=== PATIENT | male | born 1965 | race Caucasian/White ===

== ENCOUNTER 2022-12-14 20:34 | Emergency (ER) | payer SELFPAY ==
[2022-12-14 20:41] VITALS: BP 149/82; PULSE 70; RESP 18; TEMP 36.1; O2SAT 98; BMI 26.9
--- NOTE | 2022-12-14 20:50 | DI.RAD.S_ITS ---
PROCEDURE: XR WRIST RT MIN 3V INDICATIONS: deformity TECHNIQUE: 3 views of the wrist were acquired. COMPARISON: None. FINDINGS: Bones: There is a mildly impacted fracture of the distal radius with mild dorsal angulation. Fracture extends to the distal radioulnar joint which demonstrates mild widening. Soft tissues: No suspicious soft tissue calcifications. IMPRESSION: 1. Mildly impacted and dorsally angulated fracture of the distal radius with extension to the distal radioulnar joint. Dictated by: Jersey Pinto M.D. on 12/14/2022 at 22:03 Approved by: Jersey Pinto M.D. on 12/14/2022 at 22:04
[2022-12-14] MEDS: LIDOCAINE 1% 20 ML (22:14)
--- NOTE | 2022-12-14 22:38 | DI.RAD.S_ITS ---
PROCEDURE: XR WRIST RT 2V INDICATIONS: post reduction TECHNIQUE: 2 views of the wrist were acquired. COMPARISON: [facility], , XR WRIST RT MIN 3V, 12/14/2022, 20:59. FINDINGS: Bones: There is slightly improved alignment status post closed reduction of the distal radius fracture with slightly decreased dorsal angulation. There is persistent mild impaction and mild dorsal displacement. Fracture extension to the distal radioulnar joint again noted. Soft tissues: There is an external cast which limits evaluation of fine bony detail. IMPRESSION: 1. Slightly improved alignment status post closed reduction of distal radius fracture. Dictated by: Jersey Pinto M.D. on 12/14/2022 at 23:01 Approved by: Jersey Pinto M.D. on 12/14/2022 at 23:03
--- NOTE | 2022-12-14 22:42 | PC.NURSE ---
Addendum entered by Eliza Rivas R.N. 12/14/22 23:07: Went to give patient pre-pack of norco. During education patient shoved bottle back into my hand and said I don't need that shit. Attempted to educate patient about needing to follow up with orthopedics for definitive care and patient asked if it was necessary because that doctor fixed it. Educated patient that splint placed is a temporary measure and to follow up. Patient acknowledged education. Original Note: Patient continues to need re-education with how to speak and treat staff regarding his care. At one point called Dr Elvis kilpatrick disparaging name after the reduction of his fracture when the patient removed his arm from the provider and repositioned the bone back out of place. Dr Leal tried to educate patient to allow him to hold the bone in place, patient became upset with this and then patient called Dr Elvis mercer. Patient upset that he has not seen his images and states he doesn't trust us regarding his fracture and despite attempting to educate patient on the type and location of break continues to aggressively question this RN about it. Educated patient that x-rays are no longer on films and done digitally and unable to show him in the room. Patient continues to ask to see his x-rays.
--- NOTE | 2022-12-14 22:56 | ED_ITS ---
HPI - Extremity Injury (Upper) General Chief Complaint: Extremity Injury, Upper Stated Complaint: R wrist inj Time Seen by Provider: 12/14/22 21:48 Source: patient Mode of arrival: Ambulatory History of Present Illness HPI narrative: 57-year-old male smoker with noncontributory medical history presents for evaluation of a wrist injury suffered just prior to arrival. He states he was in his normal state of health and denies any prodromal symptoms but stumbled backwards when he lost his footing and landed on an outstretched wrist. He has obvious deformity and pain in his right wrist. He denies any numbness or tingling. He has no pain in his elbow or shoulders. His pain is worse with motion and improves with rest. There are no breaks in the skin. He denies other injuries such as head, neck or back. Related Data Previous Rx's Medication Instructions Recorded hydrocodone 5 mg-acetaminophen 325 1 tab PO Q4-6H PRN pain #10 tabs 12/14/22 mg tablet Allergies Allergy/AdvReac Type Severity Reaction Status Date / Time No Known Allergies Allergy Verified 12/14/22 22:48 Review of Systems Review of Systems Narrative: GENERAL: Denies chills, fatigue, malaise, fever, sweats. HEENT: Denies sinus pain, ear pain, sore throat, difficulty swallowing, dizziness. RESPIRATORY: Denies dyspnea, cough, wheezing, hemoptysis, sputum. CARDIOVASCULAR: Denies chest pain, palpitations, orthopnea, edema, GASTROINTESTINAL: Denies nausea, vomiting, abdominal pain, diarrhea, constipation, melena. : Denies dysuria, frequency, incontinence, hematuria, urinary retention. MUSCULOSKELETAL: See HPI SKIN: Denies rash, skin lesions, or other NEUROLOGIC: Denies weakness, headache, numbness, change in speech, confusion, seizures, incoordination. PSYCHIATRIC: No concerning psychosocial issues. 12 point review of systems is negative except for those stated above Patient History Social History Smoking Status: Current every day smoker Smoking Status: Current every day smoker tobacco type: cigarettes alcohol intake frequency: a few times a week Alcohol type: beer Substance Use Type: does not use Exam Narrative Exam Narrative: GENERAL: 57[] year old patient appears stated age. Well-developed patient, in mild distress. HEAD: Atraumatic. Normocephalic. EYES: Pupils equal round and reactive. Extraocular motions intact. No scleral icterus. No injection or drainage. ENT: Nose without bleeding, purulent drainage. Throat without erythema, tonsillar hypertrophy or exudate. Airway patent. NECK: Trachea midline. Non tender CARDIOVASCULAR: Regular rate and rhythm without murmurs, gallops, or rubs. RESPIRATORY: Clear to auscultation. Breath sounds equal bilaterally. No wheezes, rales, or rhonchi. GASTROINTESTINAL: Abdomen soft, non-tender, nondistended. EXTREMITIES: Right wrist with obvious deformity consistent with distal radius fracture. It is closed, isolated and neurovascularly intact, tender to palpation with limited range of motion secondary to pain and clear dorsal angulation. He has no pain in his elbow or shoulder BACK: Nontender without deformity or crepitance. No flank tenderness. NEURO: AOx3. SKIN: No rash or erythema of visible areas Initial Vital Signs Initial Vital Signs: Vital Signs Temperature 97 F L 12/14/22 20:41 Pulse Rate 70 12/14/22 20:41 Respiratory Rate 18 12/14/22 20:41 Blood Pressure 149/82 H 12/14/22 20:41 Pulse Oximetry 98 12/14/22 20:41 Oxygen Delivery Method Room Air 12/14/22 20:41 Procedures Orthopedic Fracture Reduction Fracture #1: Time Out Performed: Yes Side: right Fracture Reduction Location: radius Analgesia: hematoma block Technique: direct manipulation and traction/counter-traction Post Reduction X-rays Demonstrate: acceptable reduction Post-reduction neuro exam: intact Post-reduction vascular exam: intact Splint Applied: Yes Patient Tolerated Procedure: Well Orthopedic Splinting/Casting Injury #1: Side: right Upper Extremity Injury Location: wrist Upper Extremity Immobilizer: sling/shoulder immobilizer and sugar tong splint Post splinting neuro exam: intact Post splinting vascular exam: intact Placed by: Provider Course Orders Ordered: ED Orders 12/14/22 20:50 XR wrist RT min 3V Stat 12/14/22 22:38 XR wrist RT 2V Stat Discontinued Medications Hydrocodone Bitart/Acetaminophen (Hydrocodone/Acet 5/325 Prepack) 1 bottle MISC SEEINSTR ONE Stop: 12/14/22 22:38 Last Admin: 12/14/22 23:01 Dose: Not Given Vital Signs Vital signs: Vital Signs - 8 hr 12/14/22 20:41 Temperature 97 F L Pulse Rate 70 Respiratory Rate 18 Blood Pressure 149/82 H Pulse Oximetry 98 Oxygen Delivery Method Room Air MDM - Extremity Injury (Upper) MDM Narrative Medical decision making narrative: [57] year old patient presents with ground level fall resulting in wrist injury with obvious deformity Multiple etiologies for patient's symptoms considered including, but not limited to: [Fracture, dislocation versus other] Prior Charts reviewed in our EMR Primary Historian: patient Imaging reviewed: Wrist x-ray demonstrates distal radius fracture with dorsal angulation Patient's symptoms improved over duration of stay with above-stated therapies. Findings and discharge diagnosis discussed with patient/family followed by verbalization of understanding Return precautions discussed with patient/family whom verbalize understanding of diagnosis and plan Discharge Plan Departure Patient Disposition: Home Clinical Impression: Fracture of wrist Instructions: DI for Distal Radius Fracture Activity Restrictions/Additional Instructions: *You have been diagnosed with [distal radius fracture] *What to do: *Please continue to take your regular medications as directed. [ x] New medication prescriptions sent to your pharmacy: [ [facility]] [ ] New medication written as a paper prescription [x] Tylenol and occasional Motrin for pain *Please follow up with [ Claribel] of [facility] in 2-3 days, call for an appointment. Let them know you were seen in the Emergency Department and that we ask that you be seen in follow up. We will electronically transmit a record of today's note if your PCP is in our system *Return to Emergency Department if you should have any new, worsening or concerning symptoms, such as [worsening pain, significant swelling, cold extremities, numbness, tingling, weakness or other bothersome symptoms Splint Care: Keep splint clean and dry. Elevated affected body part to decrease swelling. OK to use ice pack on the affected body part. Use for 15-20 minutes each time, for 5-6x per day. If you develop worsening pain, numbness, tingling, discoloration of the affected body part, loosen the splint by loosening the REIC wrap, and either see your doctor for an urgent re-assessment, or return to the Emergency Department. Return to the Emergency Department for any new or worsening symptoms. You have been prescribed a short course of narcotic medications. These are potentially dangerous and addictive medications that should be used carefully. While on these medications you cannot drive or operate heavy machinery. Additionally, you cannot sign legal documents or perform any duties such as this. Many people get constipated on narcotic medications so it would be advisable to discuss stool softeners with the pharmacist when you picker and packer your prescription. Please understand that we cannot provide further refills of narcotics or controlled substances through the ED and your pain management will need to be through your Primary Care Provider Prescriptions: New hydrocodone-acetaminophen 5-325 mg tablet 1 tab PO Q4-6H PRN (Reason: pain) Qty: 10 0RF Referrals: Kathya Sanford MD [Physician] - Stand Alone Forms: Patient Portal/API
== END 2022-12-14 23:07 | disposition home or self-care (01) ==
PROVIDERS: Emergency Provider Emergency Medicine
DX: S52.501A Unspecified fracture of the lower end of right radius, initial encounter for closed fracture (principal); W01.0XXA Fall on same level from slipping, tripping and stumbling without subsequent striking against object, initial encounter
CPT/HCPCS: 25605; 73100; 73110; 99283